=== PATIENT | male | born 1970 | race Caucasian/White ===

== ENCOUNTER → 2017-05-06 | Outpatient (REF) | payer OTHER ==
[2017-05-06 17:10] LABS: ANION GAP 7 MEQ/L (8-16); BLOOD UREA NITROGEN 19 MG/DL (7-18); CALCIUM LEVEL 9.6 MG/DL (8.5-10.1); CARBON DIOXIDE LEVEL 30 MEQ/L (21-32); CHLORIDE LEVEL 102 MEQ/L (98-107); CREATININE FOR GFR 0.99 MG/DL (0.70-1.30); GLOMERULAR FILTRATION RATE > 60.0 (>60); GLUCOSE, FASTING 105 MG/DL (70-105); POTASSIUM SERUM 4.2 MEQ/L (3.5-5.1); SODIUM LEVEL 139 MEQ/L (136-145)
[2017-05-06 17:14] LABS: BASO % 0.7 % (0.0-1.0); EOS # 0.1 10^3/uL (0.0-0.50); EOS % 2.9 % (0.0-3.0); IMMATURE GRANULOCYTE % 0.2 % (0-0); LYMPH # 1.1 10^3/uL (1.5-4.5); LYMPH % 27.8 % (24.0-44.0); MEAN CORPUSCULAR HEMOGLOBIN 33.7 pg (27.0-33.0); MEAN CORPUSCULAR HGB CONC 35.3 g/dl (32.0-36.5); MEAN CORPUSCULAR VOLUME 95.3 fl (80.0-96.0); MONO # 0.3 10^3/uL (0.0-0.8); MONO % 7.6 % (0.0-5.0); NEUTROPHILS # 2.5 10^3/uL (1.8-7.7); NEUTROPHILS % 60.8 % (36.0-66.0); PLATELET COUNT, AUTOMATED 201 10^3/uL (150-450); WHITE BLOOD COUNT 4.1 10^3/uL (4.0-10.0)
== END ==
LOC: M LAB REF 16:28
PROVIDERS: ATTEND Family Medicine
DX: Z00.00 Encounter for general adult medical examination without abnormal findings (principal); I10 Essential (primary) hypertension

== ENCOUNTER → 2017-10-02 | Outpatient (REF) | payer OTHER ==
[2017-10-02 16:43] LABS: BASO % 0.3 % (0.0-1.0); EOS # 0.1 10^3/uL (0.0-0.50); EOS % 1.1 % (0.0-3.0); HEMATOCRIT 50.4 % (42.0-52.0); HEMOGLOBIN 18.1 g/dl (13.5-17.5); IMMATURE GRANULOCYTE % 0.3 % (0-3.0); LYMPH % 10.7 % (24.0-44.0); MEAN CORPUSCULAR HEMOGLOBIN 33.9 pg (27.0-33.0); MEAN CORPUSCULAR HGB CONC 35.9 g/dl (32.0-36.5); MEAN CORPUSCULAR VOLUME 94.4 fl (80.0-96.0); MONO # 0.6 10^3/uL (0.0-0.8); MONO % 5.9 % (0.0-5.0); NEUTROPHILS # 7.7 10^3/uL (1.8-7.7); NEUTROPHILS % 81.7 % (36.0-66.0); PLATELET COUNT, AUTOMATED 197 10^3/uL (150-450); RED BLOOD COUNT 5.34 10^6/uL (4.30-6.10); RED CELL DISTRIBUTION WIDTH 12.1 % (11.5-14.5); WHITE BLOOD COUNT 9.4 10^3/uL (4.0-10.0)
[2017-10-02 17:26] LABS: ANION GAP 5 MEQ/L (8-16); BLOOD UREA NITROGEN 17 MG/DL (7-18); CARBON DIOXIDE LEVEL 32 MEQ/L (21-32); CHLORIDE LEVEL 100 MEQ/L (98-107); CREATININE FOR GFR 1.23 MG/DL (0.70-1.30); GLOMERULAR FILTRATION RATE > 60.0 (>60); GLUCOSE, FASTING 120 MG/DL (70-100); SODIUM LEVEL 137 MEQ/L (136-145)
== END ==
LOC: M LAB REF 16:26
DX: R10.9 Unspecified abdominal pain (principal); K57.92 Diverticulitis of intestine, part unspecified, without perforation or abscess without bleeding
CPT/HCPCS: 80048

== ENCOUNTER 2018-08-04 10:52 | Day surgery (SDC) | payer OTHER ==
[~2018-08-04] VITALS: Ht 182.9 cm; Wt 99.8 kg
[~2018-08-04 10:52] MED LIST: HYDR25TAB PO; IBUP-1022 PO; LR 1,000 ML IV ONE; ONDANSETRON 4MG/2ML VIAL (J2405) As Ordered ONE; PROPOFOL 500 MG/50 ML VIAL As Ordered ONE; QUIN1TAB4 PO; dexameTHASONE 4 MG/ML 1ML VIAL (J1100) As Ordered ONE
[2018-08-04] MEDS ORDERED: BUPIVACAINE/EPIN 0.25% 30 ML VIAL ONE (10:53)
[2018-08-04] MEDS ORDERED: MIDAZOLAM INJ 2 MG/2 ML VIAL (J2250) As Ordered ONE ×2 (11:38→11:54)
[2018-08-04] MEDS ORDERED: fentaNYL 100 MCG/2 ML INJECTION (J3010) As Ordered ONE ×2 (11:38→14:30)
[2018-08-04] MEDS ORDERED: CLINDAMYCIN 600 MG/50 ML PREMIX BAG As Ordered ONE (11:46)
[2018-08-04] MEDS ORDERED: ROCURONIUM BROMIDE 50 MG/5 ML VIAL As Ordered ONE (11:59)
[2018-08-04] MEDS ORDERED: LIDOCAINE 2% INJ 100 MG/5 ML SDV (FOR ANES.) As Ordered ONE (11:59)
[2018-08-04] MEDS ORDERED: fentaNYL 250 MCG/5 ML INJECTION (J3010) As Ordered ONE (12:14)
[2018-08-04] MEDS ORDERED: BACITRACIN PWD 50,000 UNITS VIAL As Ordered ONE (12:20)
[2018-08-04] MEDS ORDERED: CLINDAMYCIN 600 MG in APPROPRIATE DILUENT 1 EA IV ONE (13:15)
[2018-08-04] MEDS: fentaNYL 100 MCG/2 ML INJECTION (J3010) IV PRN ×4 (14:30→14:45)
[2018-08-04] MEDS: PERCOCET 5MG/325MG TAB PO PRN ×2 (14:30→15:00)
[2018-08-04] MEDS ORDERED: PERCOCET 5MG/325MG TAB As Ordered ONE (14:30)
[2018-08-04] MEDS ORDERED: NORCO, ANEXSIA 5/325MG TABLET (HYDROcodone/ACETAMINOPHEN) PO PRN ×2 (14:45)
[2018-08-04] MEDS ORDERED: METOCLOPRAMIDE INJ 10MG/2ML VIAL (J2765) IV PRN (14:45)
[2018-08-04] MEDS ORDERED: LR 1,000 ML IV SCH ×2 (14:45)
[2018-08-04] MEDS ORDERED: MORPHINE 4 MG/ML 1ML VIAL/SYRINGE (J2270) IV PRN (14:45)
[2018-08-04] MEDS: HYDROMORPHONE HCL 0.5 MG/ 0.5 ML SYRINGE (J1170 PER 1) IV PRN ×4 (14:50→16:59)
[2018-08-04] MEDS ORDERED: BUPIVACAINE HCL 0.25% 10 ML VIAL As Ordered ONE (15:12)
[2018-08-04] MEDS ORDERED: BUPIVACAINE HCL 0.25% 30 ML VIAL As Ordered ONE (15:12)
[2018-08-04 18:24] VITALS: BP 134/90
--- NOTE | 2018-08-05 17:45 | RO ---
DATE OF PROCEDURE: 08/04/2018 PREOPERATIVE DIAGNOSES: Osteochondral defect, medial femoral condyle of the right knee. POSTOPERATIVE DIAGNOSES: Osteochondral defect, medial femoral condyle of the right knee. PROCEDURE: Fresh allograft osteoarticular allograft transplantation to the right knee, medial femoral condyle. SURGEON: Lynne Nath MD RIVET HAMMER MACHINE OPERATOR: Isma Zapata MD, and HIRA Baca ANESTHESIA: General endotracheal anesthesia. COMPLICATIONS: None. ESTIMATED BLOOD LOSS: 20 mL. SPECIMENS: None. FINDINGS: The chondral defect measured overall 20 mm in diameter. 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 DESCRIPTION OF PROCEDURE: Antibiotics were given intravenously preoperatively and then a successful general endotracheal anesthetic was established. Tourniquet was placed on the right upper thigh and not inflated. The right lower extremity was then carefully prepped in the usual sterile fashion and then elevated; and then, after appropriate time-out, the tourniquet was inflated. A longitudinal anterior incision was made for a medial parapatellar approach to the knee. Bovie cautery used to coagulate crossing vessels. Arthrotomy performed. Patella reflected laterally, soft tissues medially, allowing us to get nice exposure to the medial femoral condyle. The guidepin was placed down the center of the chondral defect. This was done after sizing it, and it looked as if a 20-mm would encompass the major portion of the chondral defect. Thus, the 20-mm reamer was introduced. Thus, at this point, I reamed to a depth of about 8-9 mm and then removed this, and then we marked the 12 o'clock, 3 o'clock, 6 o'clock and 9 o'clock position with the marking pen. Then, on the back table, we used the 20-mm sizing ring and secured it onto the allograft after holding the allograft clamp on the back table. It was secured with the pins. We marked the 12, 3, 6, and 9 o'clock positions again and then reamed the graft. We had to backsaw the back side of it to remove the plug. We then made our measurements in the morongo chondral reamed defect. It was 9 mm at 12 o'clock, 9 mm at 3 o'clock, 8 mm at 6 o'clock, 7 mm at 9 o'clock. Thus, we placed a plug of allograft into the jig after making the appropriate measurements at 12, 3, 6, and 9, and then connecting all of the dots with the marking pen. The plug was placed into the cutting guide, making sure that it aligned with the aligned nunez and clamped into position; and then, the saw was utilized to cut. I then trial reduced the plug into the morongo bed using a 2-0 Vicryl to help us remove the plug if need be, and it had almost a perfect fit except at the 6 o'clock position it was slightly proud. Thus, I brought it back to the saw guide and removed 1-2 more mm of bone from the 6 o'clock position and then replaced the plug after copiously irrigating with the pulsatile lavage mid level provider. The plug was thus seated, and this time it fit nicely with almost perfect [id number] fit. The plug was very stable. I did think we needed any additional fixation. Thus, at this point, we felt this is a satisfactory position of the graft. We irrigated the knee out copiously and then closed the arthrotomy with a double-arm #1 Stratafix suture, allowing the tourniquet to be released at this point. Irrigated again. Closed the deep subdermal tissues with interrupted 2-0 polydioxanone suture (PDS) sutures. The skin was closed with meagan, covered by an Optifoam dry sterile bulky dressing. He was then awakened from general anesthetic after tolerating the procedure well and transferred to the recovery room after being placed into a knee mobilizer. It is noteworthy that the physical therapist that will be caring for him postoperatively was in the room observing the surgery, and we discussed the postoperative protocol with her. We are going to begin nonweightbearing. No resistance active range of motion exercises as tolerated immediately postoperatively. Dr. Zapata, my insurance sales assistant, as well as Ms. Korin Martin, both were critical to the success of this complicated difficult surgery, helping with appropriate soft tissue retraction, helping to hold the graft, and help to guide the saw guide and the reamers appropriately, help to pin the graft in position, amongst several other tasks, allowing me to perform the operation smoothly and efficiently; and Ms. Korin Martin helped to prepare the patient, help to close the wound, helped with soft tissue retraction, amongst many other tasks, as well.
== END 2018-08-04 18:30 | disposition home or self-care (01) ==
LOC: M SDC 10:52
PROVIDERS: ATTEND Orthopaedic Surgery
DX: M95.8 Other specified acquired deformities of musculoskeletal system (principal); M94.261 Chondromalacia, right knee; I10 Essential (primary) hypertension; Z88.0 Allergy status to penicillin; Z79.899 Other long term (current) drug therapy
CPT/HCPCS: 27415; C1762; J1100; J1170; J2250; J2405; J3010